=== PATIENT | male | born 2000 | race African-American/Black ===

== ENCOUNTER 2022-05-05 04:26 | Emergency (ER) | payer OTHER, SELFPAY ==
[2022-05-05] MEDS ORDERED: cefTRIAXone\\ROCEPHIN 500 MG VIAL ONE (04:50)
[2022-05-05] MEDS ORDERED: Lidocaine 1% MPF 2 ML VIAL ONE (04:51)
[2022-05-05 05:04] LABS: Bilirubin Negative (Negative); Blood, Urine 1+ (Negative); Clarity Turbid (Clear); Glucose, Urine (Dipstick) Normal (Negative); Ketone, Urine Negative (Negative); Leukocyte 500 Leu/uL (Negative); Nitrite Negative (Negative); Protein, Urine (Dipstick) 50 mg/dL (Neg-Trace); RBC/HPF 21-50 HPF (0-3); Specific Gravity, Urine 1.024 (1.002-1.036); Squamous Epithelial None Seen HPF (0-3); Urobilinogen Normal mg/dL (Less than 2); WBC/HPF Greater than 50 HPF (0-3); pH, Urine 6.5 (5.0-9.0)
[2022-05-05 05:05] LABS: Bacteria/HPF 1+ HPF (None Seen)
[2022-05-05 19:59] LABS: Chlam.trachomatis by PCR,Urine Not Detected (NotDetected)
== END 2022-05-05 05:28 | disposition home or self-care (01) ==
LOC: ERS 04:26
DX: N34.2 Other urethritis (principal)
CPT/HCPCS: 81003; 81015; 87491; 87591; 96372; 99283; J0696